=== PATIENT | female | born 1950 | race Caucasian/White ===

== ENCOUNTER → 2018-02-27 | Outpatient (CLI) | payer MEDICARE, BC ==
[~2018-02-27] VITALS: Ht 162.6 cm; Wt 56.6 kg
[~2018-02-27] MED LIST: HYZAAR 25 MG-101 TAB PO; NORCO 325 MG-51 TAB PO; NORVASC 5MG5 MG/TAB PO; SYNTHROID 0.0.025 MG PO
[2018-02-27 06:38] VITALS: BP 111/74; PULSE 82
== END ==
LOC: COL.CARD 02-26 06:30
DX: R07.9 Chest pain, unspecified (principal); Z82.49 Family history of ischemic heart disease and other diseases of the circulatory system
CPT/HCPCS: A9502